=== PATIENT | male | born 1940 | race Caucasian/White ===

== ENCOUNTER → 2017-09-24 | Outpatient (CLI) | payer OTHER ==
[~2017-09-24] MED LIST: ACET325 PO; ACET500 PO; ASCO500; ASCO500 PO; ASPI325EC PO; ASPI81EC PO; Aspir 8181 MG PO; B Complex1 EAC2; BUDE10.22; BUDE10.22 INH; CALCAVITDA PO; CHOL10002 PO; COENZYME PO; CYCL10 PO; Coenzyme Q10200 M2 PO; DILT120 PO; DILT360ER PO; ERGO400; FISH1000; FLUSAL2505 INH; FURO40; FURO40 PO; GLUCHON PO; HYDCHL12.5 PO; IBUP400; IBUP400 PO; IBUP600 PO; LISI20 PO; MAGOXI400 PO; MULVITA PO; Multiple Vitam1 EAC1; NAPR220; NAPR220 PO; NAPR500ERA; Norco 5-325 Ta1 EACH PO; OMEGA 3 PO; OMEP20ER PO; OXYC5 PO; Omeprazole20 M1 PO; PROBIOTIC1 EAC1 PO; ROSU10TA PO; TIZANIDINE HCL4 MG PO; TRAM50 PO; UNISOM25 MG; VITAMIN D-3 PO; VITB100 PO; Vitamin B Comple1 EA PO
== END ==
LOC: LAB 19:58 → LAB SHORT 19:58
DX: R30.0 Dysuria (principal)
CPT/HCPCS: 87086

== ENCOUNTER 2017-10-01 10:37 | Day surgery (SDC) | payer OTHER ==
[~2017-10-01] VITALS: Ht 172.7 cm; Wt 98.4 kg
== END 2017-10-01 12:12 | disposition home or self-care (01) ==
LOC: ORSCSDS 10:37
PROVIDERS: Internal Medicine Gastroenterology
PROC: 0DB58ZX Excision of Esophagus, Via Natural or Artificial Opening Endoscopic, Diagnostic (ICD-10-PCS; principal; 2017-10-01 11:45)
DX: K22.70 Barrett's esophagus without dysplasia (principal); K44.9 Diaphragmatic hernia without obstruction or gangrene; K21.9 Gastro-esophageal reflux disease without esophagitis; I10 Essential (primary) hypertension; J45.909 Unspecified asthma, uncomplicated; G47.33 Obstructive sleep apnea (adult) (pediatric); E78.5 Hyperlipidemia, unspecified; Z79.899 Other long term (current) drug therapy; Z79.82 Long term (current) use of aspirin; Z72.0 Tobacco use
CPT/HCPCS: J7120

== ENCOUNTER → 2018-08-31 | Outpatient (CLI) | payer OTHER ==
[~2018-08-31] MED LIST changes: +B Complex #11 EACH PO; +DILTIAZEM ER360 MG PO; +FLUT1DIS5 INH; +Ferrous Sulfat325 M2 PO; +MAGNESIUM400 MG PO; +Prilosec Otc20 MG PO; +Prinivil10 MG PO; +VITAMIN D32000 UNI1 PO
== END | disposition home or self-care (01) ==
LOC: LAB 14:11 → LAB SHORT 14:11
DX: C44.622 Squamous cell carcinoma of skin of right upper limb, including shoulder (principal)
CPT/HCPCS: 88305

== ENCOUNTER → 2018-10-03 | Outpatient (CLI) | payer OTHER | END | disposition home or self-care (01) | LOC: PLD 07:45 → LAB SHORT 07:45 | DX: L57.8 Other skin changes due to chronic exposure to nonionizing radiation (principal); L81.9 Disorder of pigmentation, unspecified | CPT/HCPCS: 88305 ==

== ENCOUNTER 2018-11-10 07:28 | Day surgery (SDC) | payer OTHER ==
[~2018-11-10] VITALS: Ht 170.2 cm; Wt 94.0 kg
--- NOTE | 2018-11-10 10:04 | NUR ---
11/10/18 1004 Amisha Vega INJECTED 6.5 MLS OF SALINE INTO BX PORT PER DR FOR 2 DIFFERENT POLYPECTOMIES.
== END 2018-11-10 10:42 | disposition home or self-care (01) ==
LOC: ORSCSDS 07:28
PROVIDERS: Internal Medicine Gastroenterology
PROC: 0DBM8ZX Excision of Descending Colon, Via Natural or Artificial Opening Endoscopic, Diagnostic (ICD-10-PCS; principal; 2018-11-10 09:00)
PROC: 0DBP8ZX Excision of Rectum, Via Natural or Artificial Opening Endoscopic, Diagnostic (ICD-10-PCS; principal; 2018-11-10 09:00)
PROC: 0DBL8ZX Excision of Transverse Colon, Via Natural or Artificial Opening Endoscopic, Diagnostic (ICD-10-PCS; principal; 2018-11-10 09:00)
PROC: 0DBK8ZX Excision of Ascending Colon, Via Natural or Artificial Opening Endoscopic, Diagnostic (ICD-10-PCS; principal; 2018-11-10 09:00)
DX: Z12.11 Encounter for screening for malignant neoplasm of colon (principal); Z86.010 Personal history of colon polyps; D12.2 Benign neoplasm of ascending colon; D12.3 Benign neoplasm of transverse colon; K63.5 Polyp of colon; K62.1 Rectal polyp; K57.30 Diverticulosis of large intestine without perforation or abscess without bleeding; K64.8 Other hemorrhoids; K21.9 Gastro-esophageal reflux disease without esophagitis; I10 Essential (primary) hypertension; E78.5 Hyperlipidemia, unspecified; Z79.899 Other long term (current) drug therapy; Z79.82 Long term (current) use of aspirin; G47.33 Obstructive sleep apnea (adult) (pediatric)
CPT/HCPCS: 88305; J0461; J2405; J2704; J7120

== ENCOUNTER → 2019-05-23 | Outpatient (CLI) | payer OTHER | END | disposition home or self-care (01) | LOC: PLD 14:48 → LAB SHORT 14:48 | DX: L57.0 Actinic keratosis (principal) | CPT/HCPCS: 88305 ==

== ENCOUNTER 2019-08-10 01:18 | Observation (INO) | payer OTHER ==
[~2019-08-10] VITALS: Ht 172.7 cm; Wt 101.7 kg
[2019-08-10 02:05] LABS: BASOPHILS ABSOLUTE AUTO 0.05 K/mm3 (0.00-0.23); BASOPHILS PERCENT AUTO 0 % (0-2); EOSINOPHILS ABSOLUTE AUTO 0.09 K/mm3 (0.00-0.68); EOSINOPHILS PERCENT AUTO 1 % (0-6); Hemoglobin 14.3 g/dL (13.5-17.5); IMMATURE GRAN ABSOLUTE AUTO 0.04 K/mm3 (0.00-0.10); IMMATURE GRAN PERCENT AUTO 0 % (0-1); LYMPHOCYTES ABSOLUTE AUTO 0.81 K/mm3 (0.84-5.20); LYMPHOCYTES PERCENT AUTO 6 % (21-46); MONOCYTES ABSOLUTE AUTO 1.63 K/mm3 (0.16-1.47); MONOCYTES PERCENT AUTO 12 % (4-13); Mean Corpuscular HGB 32.1 pg (26.0-34.0); Mean Corpuscular HGB Conc 33.3 g/dL (31.5-36.5); Mean Corpuscular Volume 96 fL (80-100); Mean Platelet Volume 9.9 fL (9.1-12.4); NEUTROPHILS ABSOLUTE AUTO 10.73 K/mm3 (1.96-9.15); NEUTROPHILS PERCENT AUTO 80 % (41-73); Platelet Count 205 K/mm3 (150-400); RDW Coefficient Variation 12.7 % (11.7-14.2); RDW Standard Deviation 45.4 fL (35.1-46.3); Red Blood Cell Count 4.46 M/mm3 (4.30-5.90); White Blood Cell Count 13.35 K/mm3 (4.00-11.30)
[2019-08-10 02:24] LABS: Alanine Aminotransfer (ALT/SGP 15 U/L (12-78); Albumin, Blood 3.6 g/dL (3.4-5.0); Albumin/Globulin Ratio 0.9 (0.8-1.8); Alk Phos 100 U/L (50-136); Anion Gap 8 mmol/L (6-16); Aspartate Aminotrans (AST/SGOT 15 U/L (12-37); Bilirubin, Total 0.5 mg/dL (0.1-1.0); Blood Urea Nitrogen 21 mg/dL (8-24); Bun/Creatinine Ratio 18.9 (12.0-20.0); CO2, Blood 24 mmol/L (21-32); Calcium, Blood 8.5 mg/dL (8.5-10.1); Chloride, Blood 104 mmol/L (98-108); Creatinine, Blood 1.11 mg/dL (0.60-1.20); Globulin, Blood 4.1 g/dL (2.2-4.0); Glomerular Filtration Rate >60 (60-); Glucose, Blood 140 mg/dL (70-99); Potassium, Blood 4.1 mmol/L (3.5-5.5); Sodium, Blood 136 mmol/L (136-145); Total Protein, Blood 7.7 g/dL (6.4-8.2); Troponin I <0.015 ng/mL (0.000-0.040)
--- NOTE | 2019-08-10 07:21 | NUR ---
TIRE BUILDER OPERATOR SUMMARY PT ARRIVED TO UNIT AT 0443 VIA STRETCHER. INTRODUCED TO STAFF AND ROOM. A/O X4. STATES HE HAS CHEST PAIN WHEN TAKING DEEP BREATHES. DENIES NAUSE, DIZZINIESS. TELE APPLIED. RAPID COVID SWAB OBTAINED. REPORT GIVEN TO AM NURSE. PT REPORTS CHILLS, FEVER PRIOR TO ADMISSION. SLIGHT ELEVATED TEMP. ROOM TEMP DECREASED. DENIES CHILLS. REPORT GIVEN TO AM NURSE.
[2019-08-10 11:51] LABS: Adenovirus Not Detected (NOT DETECT); Bordetella pertussis Not Detected (NOT DETECT); Chlamydophila pneumoniae Not Detected (NOT DETECT); Coronavirus 229E Not Detected (NOT DETECT); Coronavirus HKU1 Not Detected (NOT DETECT); Coronavirus NL63 Not Detected (NOT DETECT); Coronavirus OC43 Not Detected (NOT DETECT); Human Metapneumovirus Not Detected (NOT DETECT); Human Rhinovirus/Enterovirus Not Detected (NOT DETECT); Influenza A/2009-H1 Not Detected (NOT DETECT); Influenza A/H1 Not Detected (NOT DETECT); Influenza A/H3 Not Detected (NOT DETECT); Influenza B Not Detected (NOT DETECT); Mycoplasma pneumoniae Not Detected (NOT DETECT); Parainfluenza Virus 1 Not Detected (NOT DETECT); Parainfluenza Virus 2 Not Detected (NOT DETECT); Parainfluenza Virus 3 Not Detected (NOT DETECT); Parainfluenza Virus 4 Not Detected (NOT DETECT); Respiratory Syncytial Virus Not Detected (NOT DETECT)
--- NOTE | 2019-08-10 18:33 | NUR ---
SHIFT SUMMARY: PT ARRIVED FROM ICU THIS EVENING. VSS. PT REPORTS NO NAUSEA. PT RESTING COMFORTABLY IN ROOM. CALL LIGHT WITHIN REACH. LUNGS ARE CLEAR BILATERAL. WILL CONTINUE TO MONITOR UNTIL GIVING REPORT TO NIGHT RN.
--- NOTE | 2019-08-10 19:07 | NUR ---
SHIFT SUMMARY: PT A&O X4 AND INDEPENDENT IN ROOM. PT LUNGS ARE DIMINISHED IN THE BILATERAL LOWER LOBES. PT ABLE TO WALK TO BATHROOM AND SHOWER TODAY. PT MEDICATED FOR BACK PAIN. SEE MANOLO. SOTOS. PT ON RA. REPORT GIVEN TO THEODORA RN.
[2019-08-11 05:13] LABS: BASOPHILS ABSOLUTE AUTO 0.02 K/mm3 (0.00-0.23); BASOPHILS PERCENT AUTO 0 % (0-2); EOSINOPHILS PERCENT AUTO 0 % (0-6); Hematocrit 38.4 % (37.0-53.0); Hemoglobin 13.2 g/dL (13.5-17.5); IMMATURE GRAN ABSOLUTE AUTO 0.12 K/mm3 (0.00-0.10); IMMATURE GRAN PERCENT AUTO 1 % (0-1); LYMPHOCYTES ABSOLUTE AUTO 0.47 K/mm3 (0.84-5.20); LYMPHOCYTES PERCENT AUTO 2 % (21-46); MONOCYTES ABSOLUTE AUTO 1.18 K/mm3 (0.16-1.47); MONOCYTES PERCENT AUTO 6 % (4-13); Mean Corpuscular HGB 32.6 pg (26.0-34.0); Mean Corpuscular HGB Conc 34.4 g/dL (31.5-36.5); Mean Corpuscular Volume 95 fL (80-100); Mean Platelet Volume 9.6 fL (9.1-12.4); NEUTROPHILS ABSOLUTE AUTO 18.09 K/mm3 (1.96-9.15); NEUTROPHILS PERCENT AUTO 91 % (41-73); Platelet Count 196 K/mm3 (150-400); RDW Coefficient Variation 12.5 % (11.7-14.2); RDW Standard Deviation 43.7 fL (35.1-46.3); Red Blood Cell Count 4.05 M/mm3 (4.30-5.90); White Blood Cell Count 19.88 K/mm3 (4.00-11.30)
[2019-08-11 05:38] LABS: Alanine Aminotransfer (ALT/SGP 12 U/L (12-78); Albumin, Blood 2.8 g/dL (3.4-5.0); Albumin/Globulin Ratio 0.7 (0.8-1.8); Alk Phos 84 U/L (50-136); Anion Gap 8 mmol/L (6-16); Aspartate Aminotrans (AST/SGOT 12 U/L (12-37); Bilirubin, Total 0.5 mg/dL (0.1-1.0); Blood Urea Nitrogen 22 mg/dL (8-24); CO2, Blood 25 mmol/L (21-32); Calcium, Blood 8.8 mg/dL (8.5-10.1); Chloride, Blood 105 mmol/L (98-108); Creatinine, Blood 0.88 mg/dL (0.60-1.20); Globulin, Blood 4.1 g/dL (2.2-4.0); Glomerular Filtration Rate >60 (60-); Glucose, Blood 157 mg/dL (70-99); Potassium, Blood 4.6 mmol/L (3.5-5.5); Sodium, Blood 138 mmol/L (136-145); Total Protein, Blood 6.9 g/dL (6.4-8.2)
--- NOTE | 2019-08-11 07:40 | NUR ---
MINING PLANT OPERATOR SUMMARY PT A/O X4. INDEPENDENT IN ROOM. DENIES PAIN, NAUSEA, SOB. PT STATES SOME CHEST PAIN WHEN BREATHING DEEPLY AND IS TOLERABLE. PLEASANT AND COOPERTIVE. NO ACUTE CHANGES. CALLS APPROPRIATELY. VSS.
[2019-08-11] MEDS ORDERED: ALBU90OI INH (11:39)
[2019-08-11] MEDS ORDERED: AZIT250 PO (11:40)
[2019-08-11] MEDS ORDERED: CEFU500T30 PO (11:40)
[2019-08-11] MEDS ORDERED: PRED20 PO (11:41)
[2019-08-11] MEDS ORDERED: BENZ100A PO (11:42)
--- NOTE | 2019-08-11 12:04 | NUR ---
1200 PT DISCHARGED HOME VIA PERSONAL VEHICLE ACCOMPANIED AND DRIVEN BY . PT ESCORTED TO ENTRANCE VIA W/C BY BOARD LINER OPERATOR. D/C INSTRUCTIONS REVIEWED WITH PT AND COPY PROVIDED. IV REMOVED. NO NEW CHANGES OR CONCERNS.
== END 2019-08-11 12:02 | disposition home or self-care (01) ==
LOC: ER 01:18 → MEDS 01:19
PROVIDERS: Emergency Medicine; ADMIT Internal Medicine
DX: J18.9 Pneumonia, unspecified organism (principal); J44.1 Chronic obstructive pulmonary disease with (acute) exacerbation; J44.0 Chronic obstructive pulmonary disease with (acute) lower respiratory infection; I10 Essential (primary) hypertension; Z88.0 Allergy status to penicillin; Z88.5 Allergy status to narcotic agent; Z85.46 Personal history of malignant neoplasm of prostate; Z20.828 Contact with and (suspected) exposure to other viral communicable diseases; Z79.899 Other long term (current) drug therapy
CPT/HCPCS: 0099U; 36415; 71046; 80053; 83880; 84484; 85025; 87070; 87205; 93005; 93010; 94640; 94760; 96365; 96366; 96375; 99285-25; A9270; J0456; J0696; J1650; J1885; J2405; J2930; J3010; J7050

== ENCOUNTER 2019-09-05 13:20 | Day surgery (SDC) | payer OTHER ==
[~2019-09-05 13:20] MED LIST changes: +ALBU90OI INH; +AZIT250 PO; +BENZ100A PO; +CEFU500T30 PO; +PRED20 PO
[2019-09-05 15:11] LABS: Automated BF RBC Count 0.079 M/mm3 (0-0); Automated BF WBC Count 4.409 K/mm3 (0-999); Body Fluid WBC Count 4409 /mm3 (0-999); RBC Count, Body Fluid 79000 /mm3 (0-0)
[2019-09-05 15:24] LABS: Glucose, Body Fluid 108 mg/dL; Lactate Dehydrogenase, Body Fl 313 U/L; Protein, Body Fluid 4.5 g/dL; Triglycerides, Body Fluid 21 mg/dL
[2019-09-05 16:05] LABS: Color, Body Fluid Red (None-Yellow); Total Cell Count, Body Fluid 100
[2019-09-05 16:06] LABS: Appearance, Body Fluid Bloody (Clear)
== END 2019-09-05 22:37 | disposition home or self-care (01) ==
LOC: US 13:20
PROVIDERS: Internal Medicine
DX: J90 Pleural effusion, not elsewhere classified (principal)
CPT/HCPCS: 32555; 71045; 82945; 83615; 84157; 84478; 88108; 88305; 89051

== ENCOUNTER → 2020-05-14 | Outpatient (CLI) | payer OTHER ==
[~2020-05-14] MED LIST changes: +AZIT500 PO; -B Complex #11 EACH PO; +CEFP200 PO; +Colace100 MG PO; +DAILY-VITE1 EAC1 PO; +DILTIAZEM ER240 MG PO; -DILTIAZEM ER360 MG PO; +DIPH50 PO; +DOXY100 PO; +ELIQUIS5 M2 PO; +ELIQUIS5 MG PO; +FERSU300 PO; +FOCUS FACTOR PO; -Ferrous Sulfat325 M2 PO; +GUAI600T33 PO; +POTA10T PO; +PROBIOTIC1 EA13 PO; -Prinivil10 MG PO; +TIOT18 INH; +VITAMIN B COMP1 EAC1 PO
== END | disposition home or self-care (01) ==
LOC: LAB SHORT 11:32 → PLD 11:32
DX: D48.5 Neoplasm of uncertain behavior of skin (principal)
CPT/HCPCS: 88305

== ENCOUNTER 2020-05-19 10:23 | Observation (INO) | payer OTHER ==
[~2020-05-19] VITALS: Ht 172.7 cm; Wt 99.8 kg
[~2020-05-19 10:23] MED LIST changes: -TIOT18 INH
[2020-05-19 10:54] LABS: BASOPHILS ABSOLUTE AUTO 0.04 K/mm3 (0.00-0.23); BASOPHILS PERCENT AUTO 1 % (0-2); EOSINOPHILS ABSOLUTE AUTO 0.14 K/mm3 (0.00-0.68); EOSINOPHILS PERCENT AUTO 2 % (0-6); Hematocrit 38.9 % (37.0-53.0); Hemoglobin 13.5 g/dL (13.5-17.5); IMMATURE GRAN ABSOLUTE AUTO 0.02 K/mm3 (0.00-0.10); IMMATURE GRAN PERCENT AUTO 0 % (0-1); LYMPHOCYTES ABSOLUTE AUTO 0.96 K/mm3 (0.84-5.20); LYMPHOCYTES PERCENT AUTO 11 % (21-46); MONOCYTES ABSOLUTE AUTO 1.16 K/mm3 (0.16-1.47); MONOCYTES PERCENT AUTO 13 % (4-13); Mean Corpuscular HGB 32.2 pg (26.0-34.0); Mean Corpuscular HGB Conc 34.7 g/dL (31.5-36.5); Mean Corpuscular Volume 93 fL (80-100); Mean Platelet Volume 9.5 fL (9.1-12.4); NEUTROPHILS ABSOLUTE AUTO 6.56 K/mm3 (1.96-9.15); NEUTROPHILS PERCENT AUTO 74 % (41-73); Platelet Count 186 K/mm3 (150-400); RDW Coefficient Variation 12.8 % (11.7-14.2); RDW Standard Deviation 43.6 fL (35.1-46.3); Red Blood Cell Count 4.19 M/mm3 (4.30-5.90); White Blood Cell Count 8.88 K/mm3 (4.00-11.30)
[2020-05-19 11:18] LABS: Alanine Aminotransfer (ALT/SGP 18 U/L (12-78); Albumin, Blood 3.9 g/dL (3.4-5.0); Albumin/Globulin Ratio 1.1 (0.8-1.8); Alk Phos 113 U/L (50-136); Anion Gap 7 mmol/L (6-16); Aspartate Aminotrans (AST/SGOT 22 U/L (12-37); Bilirubin, Total 0.4 mg/dL (0.1-1.0); Blood Urea Nitrogen 20 mg/dL (8-24); Bun/Creatinine Ratio 22.7 (12.0-20.0); CO2, Blood 24 mmol/L (21-32); Chloride, Blood 104 mmol/L (98-108); Creatinine, Blood 0.88 mg/dL (0.60-1.20); Globulin, Blood 3.4 g/dL (2.2-4.0); Glomerular Filtration Rate >60 (60-); Glucose, Blood 104 mg/dL (70-99); Potassium, Blood 4.3 mmol/L (3.5-5.5); Sodium, Blood 135 mmol/L (136-145); Total Protein, Blood 7.3 g/dL (6.4-8.2)
[2020-05-19 12:31] LABS: Source, Urine Clean Catch
[2020-05-19 12:37] LABS: Appearance, Urine Clear (Clear); Bilirubin, Urine Neg (Neg); Blood, Urine Neg (Neg); Color, Urine Yellow (P-Yellow); Glucose Qualitative, Urine Neg (Neg); Ketones, Urine Neg (Neg); Leukocyte Esterase, Urine Neg (Neg); Nitrite, Urine Neg (Neg); Protein, Urine Neg (Neg); Urobilinogen, Urine NORM (Normal); pH, Urine 6.5 (5.0-8.0)
[2020-05-19] MEDS ORDERED: TIOT18 INH (14:22)
[2020-05-19 17:27] LABS: Influenza A, PCR NEGATIVE (NEGATIVE); Influenza B, PCR NEGATIVE (NEGATIVE); Resp Syncytial Virus, PCR NEGATIVE (NEGATIVE); SARS-Cov-2 (COVID-19) PCR, MMC NEGATIVE (NEGATIVE)
[2020-05-20 04:37] LABS: Hematocrit 33.8 % (37.0-53.0); Hemoglobin 11.3 g/dL (13.5-17.5); Mean Corpuscular HGB 31.7 pg (26.0-34.0); Mean Corpuscular HGB Conc 33.4 g/dL (31.5-36.5); Mean Corpuscular Volume 95 fL (80-100); Mean Platelet Volume 9.4 fL (9.1-12.4); Platelet Count 151 K/mm3 (150-400); RDW Coefficient Variation 13.1 % (11.7-14.2); Red Blood Cell Count 3.57 M/mm3 (4.30-5.90)
[2020-05-20 05:02] LABS: Anion Gap 4 mmol/L (6-16); Blood Urea Nitrogen 17 mg/dL (8-24); Bun/Creatinine Ratio 17.2 (12.0-20.0); CO2, Blood 27 mmol/L (21-32); Calcium, Blood 8.4 mg/dL (8.5-10.1); Chloride, Blood 107 mmol/L (98-108); Creatinine, Blood 0.99 mg/dL (0.60-1.20); Glomerular Filtration Rate >60 (60-); Glucose, Blood 105 mg/dL (70-99); Potassium, Blood 4.5 mmol/L (3.5-5.5); Sodium, Blood 138 mmol/L (136-145)
--- NOTE | 2020-05-20 06:28 | NUR ---
SHIFT SUMMARY: SALLY IS A&O X4. HE REPORTS ADEQUATE PAIN CONTROL WITH 25 MG OF FENTANYL. HE IS A STANDBY ASSIST TO THE BATHROOM. VSS, NO ACUTE EVENTS OVERNIGHT. HE WAS MADE NPO AT MIDNIGHT, BUT TOLERATED PO INTAKE WELL UNTIL THAT TIME. GOOD URINARY OUTPUT. SCDs IN PLACE. IV PATENT, FLUIDS INFUSING. HE IS LYING IN BED WITH HIS CALL LIGHT IN REACH. WILL REPORT TO DAY SHIFT RN.
--- NOTE | 2020-05-20 13:37 | NUR ---
PT TAKEN TO DAY SURGERY.
--- NOTE | 2020-05-20 13:52 | NUR ---
PT TRANSFERED TO [facility] VIA GURNY FROM FLOOR. History, Chart, Medications and Allergies reviewed before start of procedure. Lungs clear T/O to Auscultation. Patient confirms NPO status and agrees with scheduled surgery. Pre-Op teaching done. Pt verbalizes understanding.
--- NOTE | 2020-05-20 15:02 | NUR ---
05/20/20 1502 RADHAEVERT JO PT RECEIVED SCHEDULED DOSES OF ANTIBIOTICS PRIOR TO PROCEDURE, DR HELM AWARE, NO HNEW ORDERS.
--- NOTE | 2020-05-20 17:08 | NUR ---
PT ARRIVED FROM PACU VIA PALMA, KAELYN, A&OX3, STATES HE DOESN'T REMEMBER GOING TO SURGERY, DENIES ANY PAIN OR NAUSEA AT THIS TIME, ABD LAP INCISIONS W/ SKIN GLUE, C/D/I, CLEAR LIQUIDS GIVEN, CONT. TO MONITOR FOR ANY CHANGES, MEDICATE FOR PAIN PRN.
[2020-05-21 04:12] LABS: Hematocrit 40.5 % (37.0-53.0); Hemoglobin 13.4 g/dL (13.5-17.5); Mean Corpuscular HGB 31.2 pg (26.0-34.0); Mean Corpuscular HGB Conc 33.1 g/dL (31.5-36.5); Mean Corpuscular Volume 94 fL (80-100); Mean Platelet Volume 9.6 fL (9.1-12.4); Platelet Count 205 K/mm3 (150-400); RDW Coefficient Variation 12.7 % (11.7-14.2); RDW Standard Deviation 43.9 fL (35.1-46.3); White Blood Cell Count 7.84 K/mm3 (4.00-11.30)
--- NOTE | 2020-05-21 05:10 | NUR ---
POD 1 S/P LAP APPY. PT VSS T/O NIGHT; HR SINUS 70'S PER TELE MONITOR. INCISIONS CDI, NO REDNESS NOTED. PT HAS DENEID PAIN T/O NIGHT, STATES "I DON'T HAVE ANY PAIN AT ALL" WHEN ASKED. PT CHELSEY REG PO, NO N/V, REP NO FLATUS YET, IS VOIDING URINE W/O DIFFICULTY. PT UP INDEP IN ROOM, DENIES DIZZINESS WHEN UP.
--- NOTE | 2020-05-21 08:16 | NUR ---
A&O X3, DENIES ANY PAIN OR NAUSEA, ABD SOFT, REPORTS TOLERATING DIET WELL, DR. HELM IN TO SEE PT, PLAN DC HOME TODAY.
[2020-05-21] MEDS ORDERED: Norco 5-325 Ta1 EACH PO (09:42)
== END 2020-05-21 10:35 | disposition home or self-care (01) ==
LOC: ER 10:23 → SURS 10:24 → ER 14:57 → SURS 16:53
PROVIDERS: Emergency Medicine; Surgery; ADMIT Internal Medicine
PROC: 0DTJ4ZZ Resection of Appendix, Percutaneous Endoscopic Approach (ICD-10-PCS; principal; 2020-05-20 13:45)
DX: K35.80 Unspecified acute appendicitis (principal); J44.9 Chronic obstructive pulmonary disease, unspecified; I11.0 Hypertensive heart disease with heart failure; I50.32 Chronic diastolic (congestive) heart failure; I48.0 Paroxysmal atrial fibrillation; G47.33 Obstructive sleep apnea (adult) (pediatric); D50.9 Iron deficiency anemia, unspecified; E11.9 Type 2 diabetes mellitus without complications; K21.9 Gastro-esophageal reflux disease without esophagitis; E78.5 Hyperlipidemia, unspecified; Z88.0 Allergy status to penicillin; Z88.5 Allergy status to narcotic agent; Z87.891 Personal history of nicotine dependence; Z20.822 Contact with and (suspected) exposure to COVID-19; Z79.01 Long term (current) use of anticoagulants; Z29.8 Encounter for other specified prophylactic measures
CPT/HCPCS: 0241U; 36415; 74177; 80048; 80053; 81003; 83690; 85025; 85027; 88304; 93005; 93010; 94640; 94760; 96365-59; 96366; 96372; 96375; 99285-25; A9270; G0378; J0694; J0744; J1100; J1650; J1885; J2250; J2405; J2704; J3010; J7030; J7120; Q9967

== ENCOUNTER 2021-04-22 07:46 | Day surgery (SDC) | payer OTHER ==
[~2021-04-22] VITALS: Ht 172.7 cm; Wt 106.8 kg
[~2021-04-22 07:46] MED LIST changes: +TIOT18 INH
== END 2021-04-22 09:45 | disposition home or self-care (01) ==
LOC: ORSCSDS 07:46
PROVIDERS: Internal Medicine Gastroenterology
PROC: 0DB58ZX Excision of Esophagus, Via Natural or Artificial Opening Endoscopic, Diagnostic (ICD-10-PCS; principal; 2021-04-22 09:00)
DX: K22.710 Barrett's esophagus with low grade dysplasia (principal); I10 Essential (primary) hypertension; G47.33 Obstructive sleep apnea (adult) (pediatric); K44.9 Diaphragmatic hernia without obstruction or gangrene; K21.9 Gastro-esophageal reflux disease without esophagitis; I25.10 Atherosclerotic heart disease of native coronary artery without angina pectoris; E11.9 Type 2 diabetes mellitus without complications; Z79.01 Long term (current) use of anticoagulants; Z79.899 Other long term (current) drug therapy
CPT/HCPCS: 88305; J2704; J7120

== ENCOUNTER → 2022-07-09 | Outpatient (CLI) | payer OTHER | END | disposition home or self-care (01) | LOC: LAB SHORT 11:37 → PLD 11:37 | DX: C44.622 Squamous cell carcinoma of skin of right upper limb, including shoulder (principal); L57.0 Actinic keratosis | CPT/HCPCS: 88305 ==

== ENCOUNTER → 2022-07-20 | Outpatient (CLI) | payer OTHER | END | disposition home or self-care (01) | LOC: PLD 07:20 → LAB SHORT 07:20 | DX: C44.622 Squamous cell carcinoma of skin of right upper limb, including shoulder (principal) | CPT/HCPCS: 88305 ==

== ENCOUNTER → 2023-04-20 | Outpatient (CLI) | payer OTHER | LOC: LAB 12:18 → LAB SHORT 12:18 | DX: L98.8 Other specified disorders of the skin and subcutaneous tissue (principal) | CPT/HCPCS: 88305 ==

== ENCOUNTER 2023-04-30 07:54 | Day surgery (SDC) | payer OTHER ==
[~2023-04-30] VITALS: Ht 175.3 cm; Wt 105.0 kg
[~2023-04-30 07:54] MED LIST changes: +Lactated Ringer's 1,000 ML IV SCH
--- NOTE | 2023-04-30 08:38 | NUR ---
ASSUMED CARE, REPORT FROM SHRUTHI CHOU
[2023-04-30 08:40] VITALS: BP 119/74
[2023-04-30] MEDS ORDERED: Aspir 8181 MG PO (09:12)
[2023-04-30] MEDS ORDERED: propofoL 20 ML IV ONE (09:19)
[2023-04-30] MEDS ORDERED: Midazolam HCl 1MG / ML 2ML Vial ONE (09:20)
[2023-04-30] MEDS ORDERED: FentaNYL Citrate 50 MCG/ML 2 ML Injection ONE (09:20)
--- NOTE | 2023-04-30 09:37 | NUR ---
04/30/23 0937 Sandra Perdomo HISTORY, CHART, MEDICATIONS AND ALLERGIES REVIEWED BEFORE START OF PROCEDURE. PATIENT CONFIRMS NPO STATUS AND AGREES WITH SCHEDULED PROCEDURE. 3-LEAD EKG REVIEWED WITH PHYSICIAN PRIOR TO START OF PROCEDURE. MONITOR INTACT WITH CONTINUOUS PULSE OXIMETRY,CAPNOGRAPHY, 3-LEAD EKG, INTERMITTENT BP. SUPPLEMENTAL O2 TO BE TITRATED THROUGHOUT PROCEDURE TO MAINTAIN O2 SATURATION ABOVE 90%. DR CLIFFORD PROVIDES ANESTHESIA, SEE RECORDS
[2023-04-30 10:20] VITALS: BP 124/80
[2023-04-30 10:30] VITALS: BP 124/81
--- NOTE | 2023-04-30 10:35 | NUR ---
Patient up to Ambulate independently. Gait steady. Patient States Post-Procedure ride home has been arranged. Discharged via wheelchair to private car for ride home. Discharge instructions reviewed with patient. Patient verbalizes understanding. Copy given to patient to take home.
== END 2023-04-30 10:39 | disposition home or self-care (01) ==
LOC: ORSCMMR 07:54 → ORSCSDS 12:00
PROVIDERS: Internal Medicine Gastroenterology
PROC: 0DBM8ZX Excision of Descending Colon, Via Natural or Artificial Opening Endoscopic, Diagnostic (ICD-10-PCS; principal; 2023-04-30 09:30)
PROC: 0DBN8ZX Excision of Sigmoid Colon, Via Natural or Artificial Opening Endoscopic, Diagnostic (ICD-10-PCS; principal; 2023-04-30 09:30)
PROC: 0DBL8ZX Excision of Transverse Colon, Via Natural or Artificial Opening Endoscopic, Diagnostic (ICD-10-PCS; principal; 2023-04-30 09:30)
PROC: 0DBH8ZX Excision of Cecum, Via Natural or Artificial Opening Endoscopic, Diagnostic (ICD-10-PCS; principal; 2023-04-30 09:30)
DX: Z12.11 Encounter for screening for malignant neoplasm of colon (principal); D12.0 Benign neoplasm of cecum; D12.3 Benign neoplasm of transverse colon; K63.5 Polyp of colon; K57.30 Diverticulosis of large intestine without perforation or abscess without bleeding; K64.4 Residual hemorrhoidal skin tags; Z86.010 Personal history of colon polyps; I10 Essential (primary) hypertension; G47.33 Obstructive sleep apnea (adult) (pediatric); I48.91 Unspecified atrial fibrillation; J44.9 Chronic obstructive pulmonary disease, unspecified; E66.9 Obesity, unspecified; Z68.34 Body mass index [BMI] 34.0-34.9, adult; Z79.82 Long term (current) use of aspirin; Z79.899 Other long term (current) drug therapy; Z87.891 Personal history of nicotine dependence
CPT/HCPCS: 88305; J2250; J2704; J3010; J7120

== ENCOUNTER 2024-06-17 11:57 | Inpatient (IN) | payer OTHER ==
[~2024-06-17] VITALS: Ht 172.7 cm; Wt 99.8 kg
[~2024-06-17 11:57] MED LIST changes: +CARTIA XT240 M1 PO; -DILTIAZEM ER240 MG PO; -Lactated Ringer's 1,000 ML IV SCH; +ROSUVASTATIN CA10 MG PO
[2024-06-17 12:25] LABS: BASOPHILS ABSOLUTE AUTO 0.04 K/mm3 (0.00-0.23); BASOPHILS PERCENT AUTO 0 % (0-2); EOSINOPHILS ABSOLUTE AUTO 0.01 K/mm3 (0.00-0.68); EOSINOPHILS PERCENT AUTO 0 % (0-6); Hematocrit 33.4 % (37.0-53.0); Hemoglobin 11.1 g/dL (13.5-17.5); IMMATURE GRAN PERCENT AUTO 1 % (0-1); LYMPHOCYTES ABSOLUTE AUTO 0.75 K/mm3 (0.84-5.20); LYMPHOCYTES PERCENT AUTO 4 % (21-46); MONOCYTES ABSOLUTE AUTO 2.41 K/mm3 (0.16-1.47); MONOCYTES PERCENT AUTO 11 % (4-13); Mean Corpuscular HGB 29.1 pg (26.0-34.0); Mean Corpuscular HGB Conc 33.2 g/dL (31.5-36.5); Mean Corpuscular Volume 88 fL (80-100); Mean Platelet Volume 9.1 fL (9.1-12.4); NEUTROPHILS ABSOLUTE AUTO 18.29 K/mm3 (1.96-9.15); NEUTROPHILS PERCENT AUTO 85 % (41-73); Platelet Count 286 K/mm3 (150-400); RDW Coefficient Variation 14.5 % (11.7-14.2); RDW Standard Deviation 46.6 fL (35.1-46.3); Red Blood Cell Count 3.81 M/mm3 (4.30-5.90)
[2024-06-17 12:44] LABS: Albumin/Globulin Ratio 0.7 (0.8-1.8); Bilirubin, Total 0.5 mg/dL (0.1-1.0); Bun/Creatinine Ratio 18.5 (12.0-20.0); Calcium, Blood 8.8 mg/dL (8.5-10.1); Creatinine, Blood 0.76 mg/dL (0.60-1.20); Globulin, Blood 4.4 g/dL (2.2-4.0); Total Protein, Blood 7.4 g/dL (6.4-8.2)
[2024-06-17] MEDS ORDERED: CefTRIAXone Sodium 1,000 MG in NS 100 ML IV ONE ×2 (13:25→16:05)
[2024-06-17 14:42] LABS: Influenza A, PCR NEGATIVE (NEGATIVE); Influenza B, PCR NEGATIVE (NEGATIVE); Resp Syncytial Virus, PCR NEGATIVE (NEGATIVE); SARS-Cov-2 (COVID-19) PCR, MMC NEGATIVE (NEGATIVE)
[2024-06-17] MEDS ORDERED: Potassium Chloride 40 MEQ in NS 250 ML IV ONE (15:40)
[2024-06-17] MEDS ORDERED: Doxycycline Hyclate 100 MG TAB PO ONE (15:45)
[2024-06-17] MEDS ORDERED: Ipratropium/Albuterol SulF 2.5-0.5MG/3 ML Amp INH SCH (16:05)
[2024-06-17] MEDS ORDERED: Prochlorperazine Edisylate 10 mg Vial IV PRN (16:10)
[2024-06-17] MEDS ORDERED: Acetaminophen 325 MG TABLET PO PRN (16:10)
[2024-06-17] MEDS ORDERED: NS 1,000 ML IV SCH (16:10)
[2024-06-17] MEDS ORDERED: TraZODone HCl 50 MG Tab PO PRN (16:15)
[2024-06-17] MEDS ORDERED: Mometasone/Formoterol MDI 200/5 mcg 13 GM INH SCH (16:15)
[2024-06-17] MEDS ORDERED: FLU VACC TS2024-25(6MOS UP)/PF 45 MCG/0.5 ML SYRINGE IM SCH (16:15)
[2024-06-17] MEDS ORDERED: NS 1,000 ML IV ONE (16:20)
[2024-06-17] MEDS ORDERED: Azithromycin 500 MG in NS 250 ML IV SCH (17:00)
[2024-06-17 19:23] VITALS: BP 112/89
[2024-06-17 19:41] LABS: Source, Urine Clean Catch
[2024-06-17 19:46] LABS: Appearance, Urine Clear (Clear); Bilirubin, Urine Neg (Neg); Blood, Urine 1+ (Neg); Color, Urine Yellow (P-Yellow); Glucose Qualitative, Urine Neg (Neg); Ketones, Urine Neg (Neg); Leukocyte Esterase, Urine Neg (Neg); Nitrite, Urine Neg (Neg); Protein, Urine 2+ (Neg); Urobilinogen, Urine NORM (Normal)
[2024-06-17 20:11] LABS: Bacteria Not Seen /hpf; Squamous Epithelial Cells Not Seen /hpf (Few); White Blood Cells, Urine Not Seen /hpf (0-5)
[2024-06-17] MEDS ORDERED: Sennosides 8.6 MG Tab PO SCH (21:00)
[2024-06-17] MEDS ORDERED: Apixaban 5 MG Tab PO SCH (21:00)
[2024-06-17] MEDS ORDERED: Famotidine 20 MG Tab PO SCH (21:00)
--- NOTE | 2024-06-18 04:01 | NUR ---
SHIFT SUMM: PT WAS A TRANSFER FROM ER THIS SHIFT AND HAS BEEN DOING WELL AND MOSTLY RELAXING AND SLEEPING IN BED. PT HAS BEEN SOME WHAT CONFUSED AND REPEATS HIMSELF OFTEN BUT NOT IMPULSIVE. I HAVE BED ALARM SET FOR SAFETY. PT IS WEAK AND SOB WHEN STANDING UP. PT IS ON CONT PULSE OX AND ROOM AIR W/R LOWER LOBE PNEUMONIA. PT IS ON CONT NS FLUIDS AT 100ML/HR. PT REPORTS USING A FWW AT HOME BUT I HAVE NOT SEEN HIM AMBULATE YET. PT HAS CALL LIGHT IN REACH AND NO REQUESTS AT THIS TIME.
[2024-06-18 05:14] VITALS: BP 124/65
[2024-06-18 05:24] LABS: Base Excess Venous 1.3 mmol/L; Bicarbonate Venous 25.8 mmol/L (24.0-30.0); PCO2 Venous 33.5 mmHg (38-42); pH Blood Venous 7.48 (7.34-7.37)
[2024-06-18 05:32] LABS: BASOPHILS ABSOLUTE AUTO 0.05 K/mm3 (0.00-0.23); BASOPHILS PERCENT AUTO 0 % (0-2); EOSINOPHILS ABSOLUTE AUTO 0.04 K/mm3 (0.00-0.68); EOSINOPHILS PERCENT AUTO 0 % (0-6); Hematocrit 28.8 % (37.0-53.0); Hemoglobin 9.5 g/dL (13.5-17.5); IMMATURE GRAN ABSOLUTE AUTO 0.07 K/mm3 (0.00-0.10); IMMATURE GRAN PERCENT AUTO 1 % (0-1); LYMPHOCYTES ABSOLUTE AUTO 0.83 K/mm3 (0.84-5.20); LYMPHOCYTES PERCENT AUTO 6 % (21-46); MONOCYTES ABSOLUTE AUTO 1.69 K/mm3 (0.16-1.47); MONOCYTES PERCENT AUTO 12 % (4-13); Mean Corpuscular HGB 29.3 pg (26.0-34.0); Mean Corpuscular Volume 89 fL (80-100); Mean Platelet Volume 9.5 fL (9.1-12.4); NEUTROPHILS ABSOLUTE AUTO 11.92 K/mm3 (1.96-9.15); NEUTROPHILS PERCENT AUTO 82 % (41-73); Platelet Count 237 K/mm3 (150-400); RDW Coefficient Variation 14.7 % (11.7-14.2); RDW Standard Deviation 47.8 fL (35.1-46.3); Red Blood Cell Count 3.24 M/mm3 (4.30-5.90)
[2024-06-18 05:56] LABS: Albumin, Blood 2.3 g/dL (3.4-5.0); Albumin/Globulin Ratio 0.6 (0.8-1.8); Bilirubin, Total 0.3 mg/dL (0.1-1.0); Bun/Creatinine Ratio 17.2 (12.0-20.0); Calcium, Blood 8.4 mg/dL (8.5-10.1); Creatinine, Blood 0.64 mg/dL (0.60-1.20); Globulin, Blood 3.8 g/dL (2.2-4.0); Potassium, Blood 3.2 mmol/L (3.5-5.5); Total Protein, Blood 6.1 g/dL (6.4-8.2)
[2024-06-18 07:26] VITALS: BP 151/79
[2024-06-18] MEDS ORDERED: Diltiazem HCl 180 MG Cap.CD PO SCH (09:00)
[2024-06-18] MEDS ORDERED: Enoxaparin 40 MG/0.4 ML SYR SC SCH (09:00)
[2024-06-18] MEDS ORDERED: Lisinopril 10 MG Tab PO SCH (09:00)
[2024-06-18] MEDS ORDERED: Potassium Chloride 40 MEQ in NS 250 ML IV ONE (10:00)
[2024-06-18] MEDS ORDERED: Benzonatate 100 MG Cap PO PRN (11:05)
[2024-06-18] MEDS ORDERED: Ibuprofen 600 MG Tab PO PRN (11:05)
[2024-06-18] MEDS ORDERED: CefTRIAXone Sodium 2,000 MG in NS 100 ML IV SCH (12:00)
[2024-06-18] MEDS ORDERED: NS 250 ML IV PRN (12:05)
[2024-06-18] MEDS ORDERED: NS 1,000 ML IV SCH (14:55)
[2024-06-18 15:27] LABS: Percent Saturation 6.1 % (20.0-50.0)
[2024-06-18 15:37] VITALS: BP 105/72
--- NOTE | 2024-06-18 17:40 | NUR ---
SHIFT SUMMARY NO ACUTE CHANGES. VITALS STABLE. PT REMAINS ON RA SATING 92-94% ON RA. PT DROPS TO 90% WITH AMBULATION. DOES HAVE NOTED SOB WITH EXERTION. NEW ORDERS FOR TESSALON PEARLS FOR COUGH AND IBUPROFEN FOR PAIN. BM TODAY. FAIR APPETITE. PT ABLE TO AMBULATE TO BATHROOM WITH SBA AND FWW - ENCCOURAGING PT TO GET UP AND AMBULATE TOLERATED TO MAINTAIN STRENGTH. DOES REPORT TO RN HX OF DEMENTIA. PT CURRENTLY RESTING IN HOSPITAL BED WITH BED IN LOWEST POSITION AND CALL LIGHT WITHIN REACH. PT USES CALL LIGHT APPROPRIATELY. NORMAL SALINE RUNNING 75ML/HR CONTINUOUS PER NEW ORDERS - DECREASE FROM 100 ML/HR.
[2024-06-18 19:57] VITALS: BP 154/118
[2024-06-18] MEDS ORDERED: Azithromycin 500 MG in NS 250 ML IV SCH (21:00)
[2024-06-19] VITALS (9 sets, daily range): BP systolic 93–124; BP diastolic 54–74
--- NOTE | 2024-06-19 04:28 | NUR ---
SHIFT SUMMARY NO ACUTE CHANGES OVERNIGHT. VSS ON RA >92%. PT EXPERIENCES SOB WHEN AMBULATING TO BATHROOM. USING URINAL WITH ASSISTANCE FOR NOW. A&Ox3. FORGETFUL THROUGHOUT NIGHT HOWEVER REDIRECTABLE. COUGHING OCCASIONALLY. NO C/O PAIN. CALL EVANS WITHIN REACH WITH BED ALARM SET. IV ABX GIVEN PER EMAR. NO FURTHER QUESTIONS OR CONCERNS AT THIS TIME. WILL CONTINUE WITH PLAN OF CARE.
[2024-06-19 05:54] LABS: BASOPHILS ABSOLUTE AUTO 0.05 K/mm3 (0.00-0.23); BASOPHILS PERCENT AUTO 1 % (0-2); EOSINOPHILS ABSOLUTE AUTO 0.07 K/mm3 (0.00-0.68); EOSINOPHILS PERCENT AUTO 1 % (0-6); Hematocrit 26.1 % (37.0-53.0); Hemoglobin 8.6 g/dL (13.5-17.5); IMMATURE GRAN ABSOLUTE AUTO 0.05 K/mm3 (0.00-0.10); IMMATURE GRAN PERCENT AUTO 1 % (0-1); LYMPHOCYTES PERCENT AUTO 6 % (21-46); MONOCYTES ABSOLUTE AUTO 1.16 K/mm3 (0.16-1.47); MONOCYTES PERCENT AUTO 11 % (4-13); Mean Corpuscular HGB 29.2 pg (26.0-34.0); Mean Corpuscular Volume 89 fL (80-100); Mean Platelet Volume 9.5 fL (9.1-12.4); NEUTROPHILS ABSOLUTE AUTO 8.84 K/mm3 (1.96-9.15); NEUTROPHILS PERCENT AUTO 81 % (41-73); Platelet Count 238 K/mm3 (150-400); RDW Coefficient Variation 14.9 % (11.7-14.2); Red Blood Cell Count 2.95 M/mm3 (4.30-5.90); White Blood Cell Count 10.87 K/mm3 (4.00-11.30)
[2024-06-19 06:27] LABS: Bun/Creatinine Ratio 7.1 (12.0-20.0); Calcium, Blood 8.3 mg/dL (8.5-10.1); Creatinine, Blood 0.7 mg/dL (0.60-1.20); Potassium, Blood 3.3 mmol/L (3.5-5.5)
[2024-06-19] MEDS ORDERED: Potassium Chloride 20 MEQ TabCR PO ONE (08:00)
[2024-06-19] MEDS ORDERED: Iron Dextran 975 MG in NS 250 ML IV ONE (12:35)
[2024-06-19] MEDS ORDERED: Iron Dextran 50 MG / ML 2ML Vial IV ONE (12:35)
--- NOTE | 2024-06-19 18:32 | NUR ---
SHIFT SUMMARY NO ACUTE CHANGES, PT REMAINS ON RA AND SATING ABOVE 92%. LUNGS DIMINISHED WITH WHEEZING BILATERAL LOWER LOBES, SOME CRACKLES NOTED IN RLL. CONTINUOUS PULSE OX IN PLACE. HX DEMENTIA - INCREASED FORGETFULNESS IN EVENINGS, LIKELY OWNERS. PT PLEASANT AND COOPERATIVE. FAIR INTAKE. ABLE TO MAKE NEEDS KNOWN. PT CURRENTLY DANGLING AT BEDSIDE EATING DINNER. CALL LIGHT WITHIN REACH.
[2024-06-19] MEDS ORDERED: DONEPEZIL HCL10 M1 PO (18:49)
[2024-06-19] MEDS ORDERED: MEMANTINE HCL511 PO (18:51)
[2024-06-19] MEDS ORDERED: Lactobacil 2-S.Thermo-Bifido 1 1 Cap PO SCH (21:00)
[2024-06-20 03:10] VITALS: BP 127/71
--- NOTE | 2024-06-20 03:10 | NUR ---
SHIFT SUMMARY PATIENT HAS BEEN SLEEPING INTERMITTANTLY THROUGHOUT THE NIGHT. HE IS VERY FORGETFUL DURING THE NIGHT AND KEEPS ASKING WHERE HE IS. HE IS EASILY REORIENTED. PATIENT HAS HIS CALL LIGHT WITHIN REACH AND HIS BED ALARM IS SET. IVF IS INFUSING WITHOUT COMPLICATIONS. VITAL SIGNS ARE STABLE. SAFETY PRECAUTIONS ARE BEING MAINTAINED.
[2024-06-20 07:21] VITALS: BP 137/78
[2024-06-20] MEDS ORDERED: PredniSONE 20 MG Tab PO SCH (10:00)
[2024-06-20 11:16] LABS: Hematocrit 28.7 % (37.0-53.0); Hemoglobin 9.5 g/dL (13.5-17.5); Mean Corpuscular HGB 29.5 pg (26.0-34.0); Mean Corpuscular HGB Conc 33.1 g/dL (31.5-36.5); Mean Corpuscular Volume 89 fL (80-100); Mean Platelet Volume 9.6 fL (9.1-12.4); Platelet Count 295 K/mm3 (150-400); RDW Coefficient Variation 15.2 % (11.7-14.2); RDW Standard Deviation 49.9 fL (35.1-46.3); Red Blood Cell Count 3.22 M/mm3 (4.30-5.90); White Blood Cell Count 15.65 K/mm3 (4.00-11.30)
[2024-06-20 11:46] LABS: Bun/Creatinine Ratio 10.4 (12.0-20.0); Calcium, Blood 8.5 mg/dL (8.5-10.1); Creatinine, Blood 0.67 mg/dL (0.60-1.20); Potassium, Blood 3.9 mmol/L (3.5-5.5)
[2024-06-20 14:58] VITALS: BP 130/74
[2024-06-20 19:22] VITALS: BP 120/70
[2024-06-20 22:59] VITALS: BP 120/72
[2024-06-21 01:47] VITALS: BP 139/76
--- NOTE | 2024-06-21 03:52 | NUR ---
SHIFT SUMMARY PATIENT APPEARS TO BE SLEEPING COMFORTABLY AT THIS TIME. PATIENT IS CONFUSED AT NIGHT AND FORGETS THAT HE IS IN THE HOSPITAL. HE IS EASILY REORIENTED AND IS PLEASANT AND COOPERATIVE WITH CARE. VITAL SIGNS ARE STABLE. NS IS INFUSING WITHOUT COMPLICATIONS PATIENT HAS HIS CALL LIGHT WITHIN REACH AND HIS BED ALARM IS SET. SAFETY PRECAUTIONS ARE BEING MAINTAINED.
[2024-06-21 05:41] LABS: Hematocrit 28.2 % (37.0-53.0); Hemoglobin 9.4 g/dL (13.5-17.5); Mean Corpuscular HGB 29.8 pg (26.0-34.0); Mean Corpuscular HGB Conc 33.3 g/dL (31.5-36.5); Mean Corpuscular Volume 90 fL (80-100); Mean Platelet Volume 10.2 fL (9.1-12.4); Platelet Count 259 K/mm3 (150-400); RDW Coefficient Variation 15.3 % (11.7-14.2); RDW Standard Deviation 49.9 fL (35.1-46.3); Red Blood Cell Count 3.15 M/mm3 (4.30-5.90); White Blood Cell Count 13.79 K/mm3 (4.00-11.30)
[2024-06-21 07:34] VITALS: BP 135/69
[2024-06-21] MEDS ORDERED: GuaiFENesin 600 MG TabCR PO SCH (09:00)
[2024-06-21] MEDS ORDERED: Furosemide 10 MG / ML 2ML Vial IV ONE (10:00)
[2024-06-21] MEDS ORDERED: Piperacillin/Tazobactam Sod 3.375 GM in NS 100 ML IV SCH (10:30)
[2024-06-21] MEDS ORDERED: Vancomycin HCL 2,000 MG in NS 500 ML IV ONE (11:00)
[2024-06-21 15:09] VITALS: BP 128/79
[2024-06-21] MEDS ORDERED: TraZODone HCl 50 MG Tab PO PRN (15:14)
[2024-06-21] MEDS ORDERED: CENTRUM SILVER1 EAC2 PO (15:49)
[2024-06-21] MEDS ORDERED: Calcium Carbon500 MG PO (15:50)
[2024-06-21 19:13] VITALS: BP 116/65
[2024-06-21] MEDS ORDERED: Vancomycin HCL 1,250 MG in NS 250 ML IV SCH (23:00)
[2024-06-22 05:42] LABS: Hematocrit 26.5 % (37.0-53.0); Hemoglobin 8.8 g/dL (13.5-17.5); Mean Corpuscular HGB 29.6 pg (26.0-34.0); Mean Corpuscular HGB Conc 33.2 g/dL (31.5-36.5); Mean Corpuscular Volume 89 fL (80-100); Mean Platelet Volume 9.3 fL (9.1-12.4); Platelet Count 279 K/mm3 (150-400); RDW Coefficient Variation 15.7 % (11.7-14.2); RDW Standard Deviation 50.4 fL (35.1-46.3); Red Blood Cell Count 2.97 M/mm3 (4.30-5.90); White Blood Cell Count 12.86 K/mm3 (4.00-11.30)
[2024-06-22 06:13] LABS: Bun/Creatinine Ratio 17.2 (12.0-20.0); Calcium, Blood 8.8 mg/dL (8.5-10.1); Creatinine, Blood 0.64 mg/dL (0.60-1.20); Potassium, Blood 3.7 mmol/L (3.5-5.5)
--- NOTE | 2024-06-22 06:57 | NUR ---
SHIFT SUMMARY PT IS VERY ANXIOUS. HE CALLED HIS TO TELL HER HE WANTED TO GO HOME. HIS WAS ABLE TO TALK HIM INTO STAYING AND CONTINUING TO RECEIVE TREATMENT FOR HIS PNA. THIS RN WAS ABLE TO GET HIM SOME TRAZADONE PER EMAR TO HELP WITH HIS ANXIETY SO HE COULD GET SOME REST. PT HAS BEEN OTHERWISE PLEASANT AND COOPERATIVE WITH HIS CARE. PT WOKE CONFUSED. AFTER REORIENTING PT TO HIS SURROUNDINGS AND CURRENT SITUATION, PT PUT ON HIS CPAP AND IS IN BED TRYING TO GET REST. PT SLEPT WELL THROUGH THE REST OF THE SHIFT, WAKING FOR MEDICATION.
[2024-06-22 07:40] VITALS: BP 162/89
[2024-06-22] MEDS ORDERED: Furosemide 40 MG Tab PO SCH (12:00)
[2024-06-22] MEDS ORDERED: LORazepam 1 MG Tab PO PRN (13:40)
[2024-06-22 15:31] VITALS: BP 137/71
[2024-06-22] MEDS ORDERED: TraZODone HCl 50 MG Tab PO SCH (19:00)
[2024-06-22 19:38] VITALS: BP 135/63
[2024-06-22] MEDS ORDERED: Piperacillin/Tazobactam Sod 3.375 GM in NS 100 ML IV SCH (21:00)
[2024-06-22 23:17] VITALS: BP 135/88
[2024-06-22] MEDS ORDERED: MethylPREDNISolone Sod Succ 125 MG Vial IV SCH (23:30)
[2024-06-22] MEDS ORDERED: Furosemide 10 MG/ML 4ML Vial IV ONE (23:35)
[2024-06-22 23:46] LABS: Base Excess Venous -1.7 mmol/L; Bicarbonate Venous 23.2 mmol/L (24.0-30.0); PCO2 Venous 31.3 mmHg (38-42); pH Blood Venous 7.46 (7.34-7.37)
[2024-06-22 23:57] LABS: Hematocrit 29.9 % (37.0-53.0); Hemoglobin 9.5 g/dL (13.5-17.5); Mean Corpuscular HGB Conc 31.8 g/dL (31.5-36.5); Mean Corpuscular Volume 91 fL (80-100); Platelet Count 338 K/mm3 (150-400); RDW Coefficient Variation 15.8 % (11.7-14.2); RDW Standard Deviation 51.4 fL (35.1-46.3); Red Blood Cell Count 3.28 M/mm3 (4.30-5.90); White Blood Cell Count 13.84 K/mm3 (4.00-11.30)
[2024-06-23] MEDS ORDERED: Vancomycin HCL 1,250 MG in NS 250 ML IV SCH
[2024-06-23 00:32] LABS: Alanine Aminotransfer (ALT/SGP 33 U/L (12-78); Albumin, Blood 2.7 g/dL (3.4-5.0); Albumin/Globulin Ratio 0.7 (0.8-1.8); Alk Phos 88 U/L (50-136); Anion Gap 10 mmol/L (3-11); Aspartate Aminotrans (AST/SGOT 45 U/L (12-37); Bilirubin, Total 0.3 mg/dL (0.1-1.0); Blood Urea Nitrogen 15 mg/dL (8-24); Bun/Creatinine Ratio 19.5 (12.0-20.0); CO2, Blood 24 mmol/L (21-32); Calcium, Blood 8.9 mg/dL (8.5-10.1); Chloride, Blood 108 mmol/L (98-108); Creatinine, Blood 0.77 mg/dL (0.60-1.20); Globulin, Blood 3.9 g/dL (2.2-4.0); Glomerular Filtration Rate 88 (60-); Glucose, Blood 130 mg/dL (70-99); Potassium, Blood 3.8 mmol/L (3.5-5.5); Sodium, Blood 138 mmol/L (136-145); Total Protein, Blood 6.6 g/dL (6.4-8.2); Vancomycin, Trough 21.1 ug/mL (5.0-10.0)
[2024-06-23 00:40] LABS: BAND PERCENT MAN 2 % (0-8); BASOPHILS PERCENT MAN 0 % (0-2); EOSINOPHILS PERCENT MAN 0 % (0-6); LYMPHOCYTES ABSOLUTE MAN 0.55 K/mm3 (0.84-5.20); LYMPHOCYTES PERCENT MAN 4 % (21-46); MONOCYTES ABSOLUTE MAN 0.55 K/mm3 (0.16-1.47); MONOCYTES PERCENT MAN 4 % (4-13); MYELOCYTE ABSOLUTE MAN 0.41 K/mm3 (0.00-0.00); MYELOCYTE PERCENT MAN 3 % (0-0); NEUTROPHILS ABSOLUTE MAN 12.31 K/mm3 (1.96-9.15); SEG NEUTROPHILS PERCENT MAN 87 % (41-73); TOTAL CELLS COUNTED 100
[2024-06-23] MEDS ORDERED: Vancomycin HCL 1,000 MG in NS 250 ML IV SCH (01:00)
[2024-06-23 05:28] VITALS: BP 146/83
[2024-06-23 05:44] LABS: Base Excess Venous -2.4 mmol/L; Bicarbonate Venous 22.5 mmol/L (24.0-30.0); PCO2 Venous 37.7 mmHg (38-42); pH Blood Venous 7.39 (7.34-7.37)
[2024-06-23 07:00] VITALS: BP 141/83
--- NOTE | 2024-06-23 08:12 | NUR ---
SHIFT SUMMARY AT START OF SHIFT, PT IN HIS ROOM WITH RT AT BEDSIDE. BREATHING TX ADMINISTERED BY RT. APPROX [id number], PT BEGAN CALLING OUT TO THE HALLWAY. PT REMINDED WHERE HE IS AND WHY. HIS LIGHTS WERE TURNED BACK ON, AND HE IS CURRENTLY RESTING PEACEFULLY. APPROX 0, PT O2 DESTATTED TO 80, WHILE HR CLIMED TO 170 S. RADIAL PULSE PALPATED AND VERIFIED. RT CALLED IN PT WAS ON CPAP WITH 2L BLEED-IN. INCREASED BLEED-IN TO 4L. STILL NO CHANGE. RT CHANGED PT TO NON-REBREATHER MASK AND TURNED O2 UP TO 8L. WHEN THERE WAS STILL LITTLE RESPONSE, RAPID RESPONSE WAS CALLED. DR. RODRIGUEZ ORDERED IV LASIX AND SOLU-MEDROL. PT STABALIZED AND IS NOW LYING IN BED ON BI-PAP PROVIDED BY RT. HE STATED HE WANTED TO CALL HIS . BREAK RN CALLED NUMBER ON WHITE BOARD, AND LEFT MESSAGE FOR HER TO CALL HOSPITAL. PT IS QUITE CONFUSED, THINKING HE WAS AT THIS RN S HOME RATHER THAN IN THE HOSPITAL. PT REORIENTED AND BACK TO BED. PT SLEEPING SOUNDLY AT THIS TIME. 0800, PT'S HERE TO VISIT. SHE HAS BEEN UPDATED ON PT STATUS.
[2024-06-23] MEDS ORDERED: Furosemide 10 MG/ML 4ML Vial IV ONE (09:00)
[2024-06-23 15:02] VITALS: BP 97/59
[2024-06-23 15:08] VITALS: BP 98/66
--- NOTE | 2024-06-23 17:28 | NUR ---
SHIFT SUMMARY: NO EVENTS OR CHANGES WITH THE PATIENT THROUGHOUT THE SHIFT. HE HAS BEEN SUSTAINING WELL ON ROOMAIR, NO RESPIRATORY EVENTS; TOLERATING TREATMENT WELL. PATIENT SITTING IN RECLINER, FAMILY AT BEDSIDE, CALL LIGHT WITHIN REACH, NO SIGNS OR SYMPTOMS OF DISTRESS, PLAN OF CARE ONGOING.
[2024-06-23 20:36] VITALS: BP 108/58
--- NOTE | 2024-06-24 04:06 | NUR ---
SHIFT SUMMARY NO ACUTE EVENTS DURING THIS SHIFT. PT WEARING BIPAP DURING THE NIGHT HRS. PT DENIED A NEED FOR PRN TRAZADONE. PT REPORTS WEARY AND ABLE TO GET REST T/O THE NIGHT. IV ABX INFUSED ORDERED. PRN IBUPROFEN FOR C/O CHRONIC LEFT ELBOW PAIN ADMIN AT HS. BED AT THE LOWEST POSITION, CALL LIGHT W/I REACH. LANEY BY THE BEDSIDE.
[2024-06-24 05:07] VITALS: BP 120/72
[2024-06-24 07:16] VITALS: BP 125/73
--- NOTE | 2024-06-24 07:44 | NUR ---
PHYSICIAN CONTACT DR OSMAN PLAZAAYED NO IV ACCESS FOR NOW, PLANNING ON SENDING HOME. IV WAS ACCIDENTALLY REMOVED BY PATIENT.
[2024-06-24] MEDS ORDERED: PredniSONE 20 MG Tab PO SCH (09:00)
[2024-06-24] MEDS ORDERED: Furosemide 40 MG Tab PO SCH (09:00)
[2024-06-24] MEDS ORDERED: Tessalon200 MG PO (10:33)
[2024-06-24] MEDS ORDERED: PRED20 PO (10:34)
[2024-06-24] MEDS ORDERED: VISBIOME 112.51 EACH PO (10:34)
[2024-06-24] MEDS ORDERED: GUAI600T33 PO (10:34)
[2024-06-24] MEDS ORDERED: DOXY100 PO (10:34)
== END 2024-06-24 10:45 | disposition home or self-care (01) | DRG 871 ==
LOC: ER 11:57 → MEDS 16:07 → ERHOLD 16:07 → MEDS 19:08
PROVIDERS: Internal Medicine; Physician Assistant; Student in an Organized Health Care Education/Training Program; ADMIT Internal Medicine
PROC: 3E03329 Introduction of Other Anti-infective into Peripheral Vein, Percutaneous Approach (ICD-10-PCS; principal; 2024-06-17)
PROC: 5A09357 Assistance with Respiratory Ventilation, Less than 24 Consecutive Hours, Continuous Positive Airway Pressure (ICD-10-PCS; 2024-06-17)
DX: A41.9 Sepsis, unspecified organism (principal); J18.9 Pneumonia, unspecified organism; J96.01 Acute respiratory failure with hypoxia; J44.0 Chronic obstructive pulmonary disease with (acute) lower respiratory infection; I50.32 Chronic diastolic (congestive) heart failure; E87.1 Hypo-osmolality and hyponatremia; R65.20 Severe sepsis without septic shock; I11.0 Hypertensive heart disease with heart failure; E87.6 Hypokalemia; I48.0 Paroxysmal atrial fibrillation; D50.9 Iron deficiency anemia, unspecified; E86.0 Dehydration; M19.90 Unspecified osteoarthritis, unspecified site; E78.00 Pure hypercholesterolemia, unspecified; K21.9 Gastro-esophageal reflux disease without esophagitis; Z79.01 Long term (current) use of anticoagulants; Z79.899 Other long term (current) drug therapy; Z79.82 Long term (current) use of aspirin; Z85.46 Personal history of malignant neoplasm of prostate; Z96.653 Presence of artificial knee joint, bilateral; Z96.641 Presence of right artificial hip joint; Z96.611 Presence of right artificial shoulder joint; Z96.612 Presence of left artificial shoulder joint; Z90.79 Acquired absence of other genital organ(s); Z87.891 Personal history of nicotine dependence; Z98.1 Arthrodesis status; Z98.890 Other specified postprocedural states; Z88.0 Allergy status to penicillin; Z88.6 Allergy status to analgesic agent
CPT/HCPCS: 0241U; 36415; 71045; 71046; 71260; 80048; 80053; 80202; 81001; 82728; 82803; 83540; 83550; 83605; 83880; 84145; 84484; 85025; 85027; 85379; 87040; 87070; 87205; 93005; 93010; 94640; 94660; 94664; 94760; 94762; 96365-59; 97110; 97116; 97162; 97530; 99285-25; A9270; J0456; J0696; J1750; J1940; J2543; J2919; J3370; J3480; J7030; J7040; J7050; J7512; Q9967

== ENCOUNTER 2025-01-10 06:44 | Day surgery (SDC) | payer OTHER ==
[~2025-01-10] VITALS: Ht 170.2 cm; Wt 101.8 kg
[~2025-01-10 06:44] MED LIST changes: +Balanced Salt Epinephrine Irrigation Solution 500 mL IR SCH; +CENTRUM SILVER1 EAC2 PO; +Calcium Carbon500 MG PO; +DONEPEZIL HCL10 M1 PO; +MEMANTINE HCL511 PO; +Moxifloxacin HCL 0.5 MG/0.1 ML 0.4MLSYR RIGHTEYE SCH; +Ondansetron 4 MG SoluTab MM PRN; +PHENYLEPHRINE\\TROPICAMIDE\\TETRACAINE OPHTHALMIC DILATING SOLN RIGHTEYE PRN; +Povidone-Iodine 450 DROP/30 ML Solution ONE; +Povidone-Iodine 450 DROP/30 ML Solution RIGHTEYE SCH; +Tessalon200 MG PO; +Tetracaine HCl/Pf 0.5% Opth Soln 4 ml ONE; +Triamcinolone Inj Susp 40 MG / ML 1ML Vial INJ SCH; +VISBIOME 112.51 EACH PO; +diazePAM 2 MG,diazePAM 5 MG PO SCH
[2025-01-10] MEDS ORDERED: Triamcinolone Inj Susp 40 MG / ML 1ML Vial ONE (06:53)
--- NOTE | 2025-01-10 07:25 | NUR ---
01/10/25 0725 [place] SAL AT BEDSIDE. PT RESTING WITH EYES CLOSED. CALL LIGHT IN REACH
--- NOTE | 2025-01-10 07:59 | NUR ---
01/10/25 0759 Piper Castillo VITALS AT 0758 BP: 95/67 P: 56 O2: 100% WITH 9 LITERS OF BLOW BY OXYGEN
[2025-01-10 08:15] VITALS: BP 101/79
--- NOTE | 2025-01-10 08:16 | NUR ---
01/10/25 0816 Fariha Menendez AT BEDSIDE
== END 2025-01-10 08:29 | disposition home or self-care (01) ==
LOC: ORSCSDS 06:44
PROVIDERS: Ophthalmology
PROC: 08RJ3JZ Replacement of Right Lens with Synthetic Substitute, Percutaneous Approach (ICD-10-PCS; principal; 2025-01-10 08:00)
DX: H25.811 Combined forms of age-related cataract, right eye (principal)
CPT/HCPCS: A9270; J2003; J3301; V2632

== ENCOUNTER 2025-01-17 10:14 | Day surgery (SDC) | payer OTHER ==
[~2025-01-17] VITALS: Ht 172.7 cm; Wt 100.3 kg
[~2025-01-17 10:14] MED LIST changes: +Moxifloxacin HCL 0.5 MG/0.1 ML 0.4MLSYR LEFTEYE SCH; -Moxifloxacin HCL 0.5 MG/0.1 ML 0.4MLSYR RIGHTEYE SCH; +PHENYLEPHRINE\\TROPICAMIDE\\TETRACAINE OPHTHALMIC DILATING SOLN LEFTEYE PRN; -PHENYLEPHRINE\\TROPICAMIDE\\TETRACAINE OPHTHALMIC DILATING SOLN RIGHTEYE PRN; +Povidone-Iodine 450 DROP/30 ML Solution LEFTEYE SCH; -Povidone-Iodine 450 DROP/30 ML Solution ONE; -Povidone-Iodine 450 DROP/30 ML Solution RIGHTEYE SCH; -Tetracaine HCl/Pf 0.5% Opth Soln 4 ml ONE; +Triamcinolone Inj Susp 40 MG / ML 1ML Vial ONE
[2025-01-17] MEDS ORDERED: GUAI600T33 PO (11:29)
[2025-01-17] MEDS ORDERED: IBUP200 (11:31)
[2025-01-17] MEDS ORDERED: Tetracaine HCl 0.5% Opth Soln 15 ml LEFTEYE ONE (11:50)
--- NOTE | 2025-01-17 11:54 | NUR ---
01/17/25 1154 Amisha Vega N 106/69 98% 10L BLOW BY O2 56 18
[2025-01-17 12:26] VITALS: BP 121/81
== END 2025-01-17 12:23 | disposition home or self-care (01) ==
LOC: ORSCSDS 10:14
PROVIDERS: Ophthalmology
PROC: 08RK3JZ Replacement of Left Lens with Synthetic Substitute, Percutaneous Approach (ICD-10-PCS; principal; 2025-01-17 12:00)
DX: H25.812 Combined forms of age-related cataract, left eye (principal); Z96.1 Presence of intraocular lens
CPT/HCPCS: A9270; J3301; V2632